=== PATIENT | male | born 1940 | race Caucasian/White ===

== ENCOUNTER 2017-03-17 05:59 | Inpatient (IN) | payer MEDICARE, BC ==
[2017-03-04 13:51] LABS: BASOPHILS 0.3 %; BASOPHILS ABSOLUTE 0.04 10/3/uL (0.0-0.16); EOSINOPHILS 0.7 %; EOSINOPHILS ABSOLUTE 0.08 10/3/uL (0.0-0.53); HEMATOCRIT 44.7 % (40.0-51.0); HEMOGLOBIN 14.5 g/dL (13.6-17.8); IMMATURE GRANULOCYTES 0.7 %; IMMATURE GRANULOCYTES ABSOLUTE 0.08 10/3/uL (0.0-0.11); LYMPHOCYTES 13.5 %; LYMPHOCYTES ABSOLUTE 1.64 10/3/uL (0.67-4.30); MEAN CORPUS HGB CONC 32.4 g/dL (32.0-36.0); MEAN CORPUSCULAR HEMOGLOB 29.2 pg (26.0-34.0); MEAN CORPUSCULAR VOLUME 90.1 fL (80-100); MEAN PLATELET VOLUME 9.5 fL (9.2-13.0); MONOCYTES 8.6 %; MONOCYTES ABSOLUTE 1.05 10/3/uL (0.21-1.20); NEUTROPHILS 76.2 %; NEUTROPHILS ABSOLUTE 9.27 10/3/uL (2.02-8.40); PLATELET COUNT 240 10/3/uL (150-400); RBC DISTRIBUTION WIDTH 13.5 % (12.0-16.0); RED CELL COUNT 4.96 10/6/uL (4.7-6.1); WHITE BLOOD CELLS 12.2 10/3/uL (4.5-10.5)
[2017-03-04 13:52] LABS: MANUAL DIFF NO %
[2017-03-04 13:57] LABS: PARTIAL THROMBO TIME 29.8 SEC (22.5-37.2)
[2017-03-04 13:58] LABS: PROTIME (NOT ORD) 12.9 SEC (12.0-14.5)
[2017-03-04 14:02] LABS: BUN (BLOOD UREA NITROGEN) 26 MG/DL (6-23); CALCIUM, SERUM 9.1 MG/DL (8.5-10.4); CHLORIDE, SERUM 105 MMOL/L (96-112); CO2 (CARBON DIOXIDE) 28 MMOL/L (24-34); CREATININE 1.76 MG/DL (0.70-1.30); GFR AFRICAN AMERICAN 43 ML/MIN (>=60); GFR NON AFRICAN AMERICAN 37 ML/MIN (>=60); GLUCOSE, SERUM 134 MG/DL (60-99); POTASSIUM, SERUM 4.7 MMOL/L (3.5-5.3); SODIUM, SERUM 141 MMOL/L (135-148)
[2017-03-05 14:39] LABS: ASCORBIC ACID (UR NOT ORDER) NEG (NEG); BILIRUBIN, URINE NEGATIVE (NEG); KETONE, URINE NEGATIVE (NEG); LEUKOCYTE ESTERASE(NOT OR NEG (NEG); WBC (NOT ORDERED) (RFLEX) 1 (0-5)
[2017-03-06 08:32] LABS: A/G RATIO 1.2 (0.7-1.9); ALBUMIN 3.7 G/DL (3.5-5.0); ALKALINE PHOSPHATASE 89 U/L (45-117); GLOBULIN 3.2 G/DL (2.5-4.1); SGOT(AST) 13 U/L (5-40); SGPT(ALT) 18 U/L (5-65); TOTAL BILIRUBIN 0.3 MG/DL (0-1.2); TOTAL PROTEIN 6.9 G/DL (6.0-8.5)
--- NOTE | ~2017-03-17 | DS ---
Discharge Summary [facility] [address] [place]. [address] NAME: LORY MONTAGUE : 42 STATUS : DIS IN PAT#: [id number] AGE: 76 ADM/REG DATE : 03/17/17 MR#: [id number] REPORT SERV DATE: 03/31/17 DICTATED BY: DIDIER LEIGH DATE: 03/31/17 REPORT STATUS : Draft TRANSCRIBED BY: VALERY DATE: 03/31/17 Data Collection from hospitalization DISCHARGE DIAGNOSES: 1. Severe bilateral knee degenerative joint disease. 2. Hypertension. 3. Type 2 diabetes. 4. Hearing loss. 5. Degenerative disk disease. 6. Disk herniation. 7. Diverticulosis. 8. Benign prostatic hypertrophy. 9. Anemia. 10.Gastroesophageal reflux disease. 11.Osteoarthritis. 12.Spinal stenosis. 13.Neuropathy. 14.Urinary retention. CONSULTATION: Leatha Nova NP PROCEDURES PERFORMED: Bilateral posterior stabilized total knee replacement, cemented, 03/17/2017. PATHOLOGY: Bone and tissue, right and left knee joint-degenerative osteoarthritis. MEDICATIONS: Colace 100 mg twice a day, Pepcid 20 mg twice a day, ferrous sulfate 300 mg with breakfast and supper, Neurontin 400 mg twice a day, NovoLog injection insulin as instructed, Theragran tablets one tablet with breakfast, Flomax 0.4 mg at 6 p.m. as instructed, Coumadin as instructed, Glucophage 1000 mg twice a day, Glucotrol 5 mg twice a day, Prinivil 10 mg every morning, Maxzide one tablet daily. CONDITION AT DISCHARGE: Stable. DISPOSITION: The patient was discharged to [facility] on an 1800 calorie diabetic diet with activities as instructed. HOSPITAL COURSE: This is a 76-year-old man, who was seen in the clinic with complaints of cuxhi-af-[id number] intermittent bilateral knee pain that had been symptomatic and severe for about one year. The approximate date of onset was 5+ years. The patient said that his pain was not due to an accident or injury. He is status post left knee arthroscopy in 2003. Location of the pain was medial, lateral across the patella and patellar tubercle. The patient has severe bilateral knee degenerative joint disease. Treatment options were discussed and it was elected to proceed with surgical intervention. He was admitted to the hospital at this time for further evaluation and treatment. Upon admission, he was taken to the operating room, where he underwent the above-mentioned procedure. He tolerated this well and there were no complications. Postoperatively, he was Discharge Summary [address] [place]. [address] NAME: LORY MONTAGUE : 41 STATUS : DIS IN PAT#: [id number] AGE: 76 ADM/REG DATE : 03/17/17 MR#: [id number] REPORT SERV DATE: 03/31/17 DICTATED BY: DIDIER LEIGH DATE: 03/31/17 REPORT STATUS : Draft TRANSCRIBED BY: VALERY DATE: 03/31/17 seen by Leatha Nova regarding tachycardia postoperatively. He had a tachycardic rhythm. The patient has type 2 diabetes. He is on glipizide and metformin at home. He said he checked his blood sugars only once a week. He was going to undergo diabetes education. He was placed on an 1800-calorie diabetic diet. He was placed on level 1 sliding scale insulin. He was now on insulin hypoglycemic protocol and metformin was held as well as his Glucotrol presently. Hemoglobin A1c was going to be checked. EKG revealed sinus tachycardia. He did lose blood. He was going to be given a normal saline bolus. We would hold his daily Maxzide and continue his IV fluids. He was going to be given oral Kayexalate as well as calcium gluconate. He does have hyperkalemia. He has a creatinine level of 1.57 with acute renal insufficiency. Lisinopril was held. His daily Neurontin was continued for his neuropathy. Hemoglobin A1c and EKG were going to be checked as well as BMP, PT, CBC, magnesium, and phosphorus. On postop day one, he underwent diabetes education. A straight catheterization had been performed. He said he was having no urge to void. SINDHU inhibitor was on hold. A dose of Levemir was given. Sliding scale insulin was increased to level 2. Weston catheter was going to be placed. Toradol was soft. He did have some urinary retention. Flomax was ordered. Nephrotoxic medications were held. He was evaluated by Physical Therapy. Over the next couple of days, he continued to progress. He was working with Physical Therapy. LEIGH hose remained in place. Bladder training was began. On 03/20/2017, he did have some dizziness and lightheadedness when sitting up. Creatinine level was 1.20. He was transfused one unit of packed red blood cells. Flomax was continued. Discharge instructions were given. Due to his improved and stable condition, he was discharged to [facility] with the above-stated instructions. Information collected by: Mary Ann Rand I submit the above information as my discharge summary. ADRIANNA/VALERY Shelia Leigh M.D. / [id number] CC: Stoney De Souza M.D. [facility]
--- NOTE | ~2017-03-17 | OP ---
Record Of Operation [facility] [address] [place]. [address] NAME: LORY MONTAGUE : 42 STATUS : ADM IN PAT#: [id number] AGE: 76 ADM/REG DATE : 03/17/17 MR#: [id number] REPORT SERV DATE: 03/17/17 DICTATED BY: DIDIER LEIGH DATE: 03/17/17 REPORT STATUS : Draft TRANSCRIBED BY: MODL DATE: 03/17/17 DATE OF PROCEDURE: 03/17/2017 PREOPERATIVE DIAGNOSIS: Severe bilateral knee degenerative joint disease. POSTOPERATIVE DIAGNOSIS: Severe bilateral knee degenerative joint disease. OPERATION: Bilateral posterior stabilized total knee replacement, cemented. SIDE: Right and left. SIZE: See chart. ANESTHESIA: See chart. ESTIMATED BLOOD LOSS: About 10 mL. TOURNIQUET TIME: Approximately 1 hour and 10 minutes. COMPLICATIONS: None. SPECIMENS: Articular surfaces. PROCEDURE IN DETAIL: The patient was appropriately identified and marked. The operative side agreed with the consent form and it was checked by all members of the surgical team. The patient was taken to the operating room and anesthesia was induced per the anesthesiologist. The patient was carefully transferred to the operating table without incident. The patient received appropriate prophylactic antibiotics and a Weston catheter was placed in the standard sterile technique. The patient was then carefully positioned, padded, prepped and draped in the normal sterile fashion. The operative leg had been appropriately identified and checked by all members of the operating team against the consent form and found to be the correct limb. The patient's lower extremity was then exsanguinated with an Deni wrap and a tourniquet was inflated to 350 mmHg. Sharp dissection was carried out through a straight midline longitudinal incision and electrocautery through the fat. Sharp quad splitting approach was carried out between about the medial 10 percent of the tendon and the lateral 90 percent of the tendon and down around the medial aspect of the patella and then 1 cm medial to the tibial tubercle. The patella was carefully everted and the posterior fat pad was excised and gentle MCL elevation was carried out off the proximal medial tibia subperiosteally. IM guide was placed in the distal femur after using the appropriate drill. The distal femoral cutting guide was held with 2 pins and the distal cut made. Meniscal fragments and the ACL and the PCL were excised with electrocautery, carefully staying anterior to the posterior fat pad. The proximal tibial alignment guide was set appropriately and the proximal tibial cut made. Spacer block verified full extension with excellent mediolateral balance. Sizing guide was used to place 2 drill holes in the distal femur and the four-in-one cutting block was then placed, impacted and checked Record Of Operation [facility] [address] [place]. [address] NAME: LORY MONTAGUE : 41 STATUS : ADM IN PAT#: [id number] AGE: 76 ADM/REG DATE : 03/17/17 MR#: [id number] REPORT SERV DATE: 03/17/17 DICTATED BY: DIDIER LEIGH DATE: 03/17/17 REPORT STATUS : Draft TRANSCRIBED BY: MODL DATE: 03/17/17 to be sure it would not notch with an tamra wing and it was held with 2 pins. The anterior cut, posterior cut, anterior chamfer and posterior chamfer cuts were made. The pins were removed and the block was removed. A posterior release was carried out with a curved 3/4 inch osteotome staying right on the bone posteriorly. The box-cut guide was then placed, impacted and held with 2 pins and a reciprocating saw was used to cut out the box. With the trial components in place, there was excellent medial/lateral balance. The patella was then measured with a caliper, cut first with an oscillating saw and then reamed with a patella reamer. With the trial patella in place, there was excellent patellar tracking. Rotation was marked on the tibia and the tibia prepared with a drill and stamp chisel. All surfaces were then copiously irrigated with pulsatile lavage, carefully dried and then vacuum-mixed cement was pressurized with a cement gun in a doughy phase. The tibial component was placed, impacted and excess cement was removed. The cement was then pressurized in the femur and placed on the posterior runners of the femoral component, which was placed, impacted and excess cement removed and the knee was brought out into extension on a trial spacer. The cement was then pressurized in the patella. Patellar component was then placed, clamped and excess cement was removed. Once all cement was hardened, the knee was taken through range of motion. Further extruded cement was removed with a small osteotome. Then based on the trial inserts, we decided on the actual insert, which was placed in the standard fashion and held with a locking mechanism. The knee was then copiously irrigated and then closed in a layered fashion over a medium Hemovac drain superolaterally with interrupted #1 in the deep fascia, 2-0 subcutaneous and anju in the skin. The wounds were dressed sterilely and the tourniquet was deflated. After completion of the first knee and discussion with the anesthesiologist, all parameters were acceptable and we decided to proceed with the second knee. Same procedure as that dictated above was carried out on the contralateral knee. The contralateral leg was again appropriately identified and checked by all members of the operating team against the consent form and found to be the correct limb. The patient's lower extremity was then exsanguinated with an Deni wrap and a tourniquet was inflated to 350 mmHg. Sharp dissection was carried out through a straight midline longitudinal incision and electrocautery through the fat. Sharp quad splitting approach was carried out between about the medial 10 percent of the tendon and the lateral 90 percent of the tendon and down around the medial aspect of the patella and then 1 cm medial to the tibial tubercle. The patella was carefully everted and the posterior fat pad was excised and gentle MCL elevation was carried out off the proximal medial tibia subperiosteally. IM guide was placed in the distal femur after using the appropriate drill. The distal femoral cutting guide was held with 2 pins and the distal cut made. Meniscal fragments and the ACL and the PCL were excised with electrocautery, carefully staying anterior to the posterior fat pad. The proximal tibial alignment guide was set appropriately and the proximal tibial cut made. Spacer block verified full extension with excellent mediolateral balance. Sizing guide was used to place 2 drill holes in the distal femur and the four-in-one cutting block was then placed, impacted and checked to be sure it would not notch with an tamra wing and it was held with 2 pins. The anterior cut, posterior cut, anterior chamfer and posterior chamfer cuts were made. The pins were removed and the block was removed. A posterior release was carried out with a curved 3/4 inch osteotome staying right on the bone posteriorly. The box cut guide was then placed, impacted and held with 2 pins and a reciprocating saw was used to Record Of Operation [address] [place]. [address] NAME: LORY MONTAGUE : 42 STATUS : ADM IN [facility]#: [id number] AGE: 76 ADM/REG DATE : 03/17/17 MR#: [id number] REPORT SERV DATE: 03/17/17 DICTATED BY: DIDIER LEIGH DATE: 03/17/17 REPORT STATUS : Draft TRANSCRIBED BY: VALERY DATE: 03/17/17 cut out the box. With the trial components in place, there was excellent medial/lateral balance. The patella was then measured with a caliper, cut first with an oscillating saw and then reamed with a patella reamer. With the trial patella in place, there was excellent patellar tracking. Rotation was marked on the tibia and the tibia prepared with a drill and stamp chisel. All surfaces were then copiously irrigated with pulsatile lavage, carefully dried and then vacuum-mixed cement was pressurized with a cement gun in a doughy phase. The tibial component was placed, impacted and excess cement was removed. The cement was then pressurized in the femur and placed on the posterior runners of the femoral component, which was placed, impacted and excess cement removed and the knee was brought out into extension on a trial spacer. The cement was then pressurized in the patella. Patellar component was then placed, clamped and excess cement was removed. Once all cement was hardened, the knee was taken through range of motion. Further extruded cement was removed with a small osteotome. Then based on the trial inserts, we decided on the actual insert, which was placed in the standard fashion and held with a locking mechanism. The knee was then copiously irrigated and then closed in a layered fashion over a medium Hemovac drain superolaterally with interrupted #1 in the deep fascia, 2-0 subcutaneous and anju in the skin. The wounds were dressed sterilely and the tourniquet was deflated. The patient was then awakened and taken to the postanesthesia care unit without incident. All counts were correct at the end of the case. YE/VALERY Shelia Leigh M.D. / [id number] CC: Shelia eLigh M.D.
--- NOTE | ~2017-03-17 | CN ---
Consultation Report [address] [address] NAME: LORY MONTAGUE : 42 STATUS : ADM IN PAT#: [id number] AGE: 76 ADM/REG DATE : 03/17/17 MR#: [id number] REPORT SERV DATE: 03/18/17 DICTATED BY: LEATHA REYNOLDS DATE: 03/18/17 REPORT STATUS : Draft TRANSCRIBED BY: MODL DATE: 03/18/17 CONSULTATION DATE OF CONSULTATION: 03/17/2017 REASON FOR CONSULTATION: The Hospitalist Group was consulted for tachycardia postoperatively. IDENTIFYING DATA: PCP: The patient states he sees Dr. Vázquez, believes his name is Dr. Tom Vázquez. Orthopedist: In the past, Dr. Salas Campo as well as Dr. Kai Parrish. Urologist: Dr. Randy Larose Jr. Crm Analyst: Dr. Chandra. Surgeon: Dr. Khris Lubin. Senior Ui Ux Designer: Dr. Oc Tejeda. HISTORY OF PRESENT ILLNESS: This is a pleasant 76-year-old male with history of hypertension, degenerative disk disease, diverticulosis, BPH, diabetes type 2 diagnosed in 1994, GERD, spinal stenosis, neuropathy. He is being seen by Dr. Randy Campo on this admission for which his admission diagnosis was severe bilateral knee degenerative joint disease. He is status post surgery on 03/17/2017, for bilateral total knee arthroplasty. We have been consulted in the Hospitalist Group because of the patient having a tachycardic rhythm. The patient's history was obtained through interview with the patient, coupled with review of [employer] and [employer]. PAST MEDICAL HISTORY: 1. Seasonal allergies. 2. Hearing loss. 3. Bilateral hearing aids. 4. Wears glasses. 5. Hypertension. 6. Degenerative disk disease. 7. Disk herniation. 8. Diverticulosis. 9. BPH. 10.Diabetes, type 2, diagnosed in 1994. 11.Anemia. 12.GERD. 13.Osteoarthritis. 14.Spinal stenosis. 15.Neuropathy. 16.Urinary retention. Consultation Report [address] [address] NAME: LORY MONTAGUE : 41 STATUS : ADM IN PAT#: [id number] AGE: 76 ADM/REG DATE : 03/17/17 MR#: [id number] REPORT SERV DATE: 03/18/17 DICTATED BY: GAILLEATHA SERNAN DATE: 03/18/17 REPORT STATUS : Draft TRANSCRIBED BY: VALERY DATE: 03/18/17 HOME MEDICATIONS: 1. Gabapentin 400 mg p.o. twice a day. 2. Glucotrol 5 mg p.o. twice a day. 3. Lisinopril 10 mg p.o. every morning. 4. Metformin 1000 mg p.o. twice a day. 5. Ultram extended release 300 mg p.o. daily. 6. Maxzide-25 one tablet p.o. daily. SOCIAL HISTORY: The patient is 55 years, has three grown daughters, four grandchildren, and four great grandchildren. He was a smoker, but quit 25 years ago. He lives in a single-level home. He has to utilize a cane to ambulate for the last 18 months due to his bilateral knee problem. No illicit drug use. He does drink alcohol occasionally, one drink at night two to three times per week. FAMILY HISTORY: Mother had coronary artery disease, PA, cancer and was at 62 years old. The patient is an only child. He has no known history of his father's medical history. SURGICAL HISTORY: 1. Appendectomy as a child. 2. Cholecystectomy, laparoscopic in 2008. 3. Inguinal hernia surgery. 4. Right knee scope in 2003. 5. Spinal fusion 04/2014. 6. Repair of bile duct blockage in 2012. 7. LESI of L5-S1 in 2011. REVIEW OF SYSTEMS: Negative other than what is in HPI. The patient has no shortness of breath. No nausea or vomiting. No abdominal pain. No chest pain. No fever. Displays no confusion or agitation. He is on the defensive monitoring and displays a sinus tachycardia as well as a stat EKG noting a sinus tachycardia with nonspecific T-wave abnormality. His rate was at 121. Presently, his heart rate is at 114. PHYSICAL EXAMINATION: VITAL SIGNS: From today, blood pressure 138/69, respiratory rate 18, heart rate 130, temperature 99.1, O2 saturation 96% on room air. GENERAL: This is a very pleasant 76-year-old male, resting in bed. In no acute distress. NEURO: His head is atraumatic, normocephalic. He is alert and oriented x3. His cranial nerves are intact. His mood is pleasant and appropriate. NECK: Supple. Trachea is midline. No JVD noted. No obvious thyromegaly or lymphadenopathy. EENT: His sclerae are nonicteric. Pupils are equal and reactive to light. His nares are Consultation Report [facility] [address] [place]. [address] NAME: LORY MONTAGUE : 42 STATUS : ADM IN PAT#: [id number] AGE: 76 ADM/REG DATE : 03/17/17 MR#: [id number] REPORT SERV DATE: 03/18/17 DICTATED BY: LEATHA REYNOLDS DATE: 03/18/17 REPORT STATUS : Draft TRANSCRIBED BY: MODL DATE: 03/18/17 patent. Mucous membranes moist. His tongue is midline without deviation. Soft palate rises equally on phonation. CHEST: No pain with palpation. LUNGS: Clear to auscultation bilaterally. He has normal respiratory effort. No increased work of breathing with conversation. He is encouraged to use his incentive spirometer. CARDIOVASCULAR: S1, S2. No obvious murmurs, rubs, or gallops. He is displaying a regular rhythm of sinus tachycardia with a rate presently at 114 on defensive monitoring. ABDOMEN: Obese, soft, nontender. Bowel sounds are active. No palpable organomegaly. Last bowel movement was 03/17/2017. EXTREMITIES: Pulses present. No calf tenderness. No edema. He has bilateral SCDs and TEDs intact. SKIN: Warm and dry. No unusual rashes or lesions. Normal color and turgor for age. PSYCH: The patient is pleasant and cooperative. Appropriate mood and affect. SURGICAL WOUND SITE: The patient does have two Chaplin drain in place at operative knee sites bilaterally with sanguinous drainage noted. LABORATORY DATA: From 03/17/2017 at 2340 hours, sodium 137, potassium 5.8, chloride 106, BUN 29, creatinine 1.57, GFR 49, glucose 277, calcium 8.0, magnesium 1.4, phosphorus 3.4. White blood cells 17.7, hemoglobin 10.3, hematocrit 32.0, platelets 266. INR 1.0. He had an EKG on 03/17/2017, which displayed a sinus tachycardia with nonspecific T-wave abnormality at a rate of 121. ASSESSMENT AND PLAN: 1. Diabetes, type 2. The patient is on glipizide, metformin at home. He says he checks his blood sugars only one time a week. He states he was not eating tonight, he could not eat any of the hospital food. We will have a community educator to see him. He is on a diabetic 1800 calorie diet. We will change his insulin or his diabetes coverage to fingerstick blood sugars a.c. and at bedtime. We will put him on a sliding scale level 1. Since he is not on insulin with hypoglycemic protocol, we will hold his metformin and his Glucotrol presently, and we will check hemoglobin A1c on his labs. 2. Tachycardia for which we were consulted. EKG shows a sinus tachycardia. The patient did lose blood. He had two Cyril full. We will give him a normal saline 500 mL bolus. We will hold his daily Maxzide and continue his IV fluids at 100 an hour. 3. Hyperkalemia. We have noted on the labs that we obtained his potassium and was 5.8. He will be continued on telemetry. We will give him Kayexalate p.o. as well as calcium gluconate and treat his blood sugar as needed. We will also continue his IV fluids at 100 an hour and recheck his potassium at 6:00 a.m. 4. Acute renal insufficiency. Noted on labs, creatinine was 1.57. We will hold his lisinopril also because of renal function as well as the high potassium level that is accompanied. 5. Neuropathy. We will continue his daily Neurontin. 6. Labs, BMP, PT, CBC, magnesium, phosphorus, we will get a.m. hemoglobin A1c, EKG. The patient will need to be hydrated which is part of his tachycardia as well as the blood loss during surgery and we will need to recheck his BMP later on this morning. The Hospitalist Group would like to thank you for this consultation. Please let us know if Consultation Report [place] [address] [place]. [address] NAME: LORY MONTAGUE : 42 STATUS : ADM IN [facility]#: [id number] AGE: 76 ADM/REG DATE : 03/17/17 MR#: [id number] REPORT SERV DATE: 03/18/17 DICTATED BY: LEATHA REYNOLDS DATE: 03/18/17 REPORT STATUS : Draft TRANSCRIBED BY: VALERY DATE: 03/18/17 we could be of further assistance. /VALERY Leatha Reynolds NP / [id number] CC: Stoney De Souza M.D.
[~2017-03-17 05:59] MED LIST: ASA5GR PO; BALACET 325 PO; CINNAMON PO; DYAZIDE1 CAP PO; GARLIC PO; GARLIFE PO; GLUCOPHAGE1000 MG PO; GLUCOTROL5 PO; LEVAQUIN750 MG PO; LORTAB10 PO; MAX25 PO; METHOC750B; MOBIC15 MG PO; MORPHINE; MSCONT15 PO; MULTIPLE VIT PO; MULTIVITAMI1 PO; NEUR400 PO; NEUR600 PO; NORCO1 TAB PO; ONGLYZA5 MG PO; OXYCOD PO; PRILO PO; PRIN10 PO; RED YEAS1 OR; RED YEAS1 PO; SENTAB PO; TRADJENTA5 MG PO; ULTRAM ER300 MG PO; VITAMIN C100 MG PO; VITAMIN C1000 MG PO; VITC500 PO; ZOFRAN ODT4 MG PO
[2017-03-17 23:56] LABS: MEAN CORPUS HGB CONC 32.2 g/dL (32.0-36.0); MEAN CORPUSCULAR HEMOGLOB 29.3 pg (26.0-34.0); MEAN CORPUSCULAR VOLUME 90.9 fL (80-100); MEAN PLATELET VOLUME 9.5 fL (9.2-13.0); PLATELET COUNT 266 10/3/uL (150-400); RBC DISTRIBUTION WIDTH 13.6 % (12.0-16.0)
[2017-03-17 23:58] LABS: HEMOGLOBIN 10.3 g/dL (13.6-17.8); MANUAL DIFF YES %; RED CELL COUNT 3.52 10/6/uL (4.7-6.1); WHITE BLOOD CELLS 17.7 10/3/uL (4.5-10.5)
[2017-03-18 00:04] LABS: BUN (BLOOD UREA NITROGEN) 29 MG/DL (6-23); CHLORIDE, SERUM 106 MMOL/L (96-112); CREATININE 1.57 MG/DL (0.70-1.30); GFR AFRICAN AMERICAN 49 ML/MIN (>=60); GFR NON AFRICAN AMERICAN 42 ML/MIN (>=60); PHOSPHORUS, SERUM 3.4 MG/DL (2.5-4.5); SODIUM, SERUM 137 MMOL/L (135-148)
[2017-03-18 00:18] LABS: BAND NEUTROPHILS 5 %; LYMPHOCYTES 3 %; LYMPHOCYTES ABSOLUTE (CALC) 0.53 10/3/uL (0.67-4.30); MONOCYTES 7 %; MONOCYTES ABSOLUTE (CALC) 1.24 10/3/uL (0.21-1.20); NEUTROPHILS ABSOLUTE (CALC) 15.93 10/3/uL (2.02-8.40); PLATELET ESTIMATE ADQ (ADEQUATE); RBC MORPHOLOGY NORM (NORMAL); SEGMENTED NEUTROPHIL (0) 85 %; TOTAL NUCLEATED CELLS 100
[2017-03-18 00:19] LABS: CO2 (CARBON DIOXIDE) 23 MMOL/L (24-34); GLUCOSE, SERUM 277 MG/DL (60-99); POTASSIUM, SERUM 5.8 MMOL/L (3.5-5.3)
[2017-03-18 05:34] LABS: HEMATOCRIT 28.1 % (40.0-51.0); HEMOGLOBIN 8.9 g/dL (13.6-17.8)
[2017-03-18 05:36] LABS: INTERNATIONAL NORMAL RATI 1.2 UNITS (-)
[2017-03-18 05:45] LABS: BUN (BLOOD UREA NITROGEN) 29 MG/DL (6-23); CALCIUM, SERUM 8.1 MG/DL (8.5-10.4); CHLORIDE, SERUM 107 MMOL/L (96-112); CO2 (CARBON DIOXIDE) 23 MMOL/L (24-34); CREATININE 1.57 MG/DL (0.70-1.30); GFR AFRICAN AMERICAN 49 ML/MIN (>=60); GFR NON AFRICAN AMERICAN 42 ML/MIN (>=60); GLUCOSE, SERUM 240 MG/DL (60-99); POTASSIUM, SERUM 5.3 MMOL/L (3.5-5.3); SODIUM, SERUM 139 MMOL/L (135-148)
[2017-03-18 05:52] LABS: PROTIME (NOT ORD) 15.4 SEC (12.0-14.5)
[2017-03-18 10:38] LABS: BUN (BLOOD UREA NITROGEN) 30 MG/DL (6-23); CALCIUM, SERUM 7.8 MG/DL (8.5-10.4); CHLORIDE, SERUM 105 MMOL/L (96-112); CO2 (CARBON DIOXIDE) 24 MMOL/L (24-34); CREATININE 1.64 MG/DL (0.70-1.30); GFR AFRICAN AMERICAN 47 ML/MIN (>=60); GFR NON AFRICAN AMERICAN 40 ML/MIN (>=60); GLUCOSE, SERUM 285 MG/DL (60-99); POTASSIUM, SERUM 4.8 MMOL/L (3.5-5.3); SODIUM, SERUM 138 MMOL/L (135-148)
[2017-03-19 07:25] LABS: BASOPHILS 0.2 %; BASOPHILS ABSOLUTE 0.02 10/3/uL (0.0-0.16); EOSINOPHILS 0.1 %; EOSINOPHILS ABSOLUTE 0.01 10/3/uL (0.0-0.53); HEMATOCRIT 25.5 % (40.0-51.0); HEMOGLOBIN 8.4 g/dL (13.6-17.8); IMMATURE GRANULOCYTES 0.8 %; IMMATURE GRANULOCYTES ABSOLUTE 0.11 10/3/uL (0.0-0.11); LYMPHOCYTES 11.2 %; LYMPHOCYTES ABSOLUTE 1.47 10/3/uL (0.67-4.30); MANUAL DIFF NO %; MEAN CORPUS HGB CONC 32.9 g/dL (32.0-36.0); MEAN CORPUSCULAR HEMOGLOB 29.6 pg (26.0-34.0); MEAN CORPUSCULAR VOLUME 89.8 fL (80-100); MEAN PLATELET VOLUME 9.6 fL (9.2-13.0); MONOCYTES ABSOLUTE 1.84 10/3/uL (0.21-1.20); NEUTROPHILS 73.7 %; NEUTROPHILS ABSOLUTE 9.72 10/3/uL (2.02-8.40); PLATELET COUNT 239 10/3/uL (150-400); RBC DISTRIBUTION WIDTH 13.9 % (12.0-16.0); RED CELL COUNT 2.84 10/6/uL (4.7-6.1); WHITE BLOOD CELLS 13.2 10/3/uL (4.5-10.5)
[2017-03-19 07:32] LABS: INTERNATIONAL NORMAL RATI 1.8 UNITS (-)
[2017-03-19 07:37] LABS: CALCIUM, SERUM 7.8 MG/DL (8.5-10.4); CHLORIDE, SERUM 103 MMOL/L (96-112); CO2 (CARBON DIOXIDE) 23 MMOL/L (24-34); CREATININE 1.45 MG/DL (0.70-1.30); GFR AFRICAN AMERICAN 54 ML/MIN (>=60); GFR NON AFRICAN AMERICAN 47 ML/MIN (>=60); POTASSIUM, SERUM 4.2 MMOL/L (3.5-5.3); SODIUM, SERUM 135 MMOL/L (135-148)
[2017-03-19 07:38] LABS: ALBUMIN 2.8 G/DL (3.5-5.0); BUN (BLOOD UREA NITROGEN) 25 MG/DL (6-23); GLUCOSE, SERUM 225 MG/DL (60-99); PHOSPHORUS, SERUM 2.3 MG/DL (2.5-4.5)
[2017-03-20 07:34] LABS: BASOPHILS 0.2 %; BASOPHILS ABSOLUTE 0.02 10/3/uL (0.0-0.16); EOSINOPHILS 1.2 %; EOSINOPHILS ABSOLUTE 0.11 10/3/uL (0.0-0.53); HEMATOCRIT 22.6 % (40.0-51.0); HEMOGLOBIN 7.3 g/dL (13.6-17.8); IMMATURE GRANULOCYTES 0.8 %; IMMATURE GRANULOCYTES ABSOLUTE 0.08 10/3/uL (0.0-0.11); LYMPHOCYTES ABSOLUTE 1.34 10/3/uL (0.67-4.30); MANUAL DIFF NO %; MEAN CORPUS HGB CONC 32.3 g/dL (32.0-36.0); MEAN CORPUSCULAR HEMOGLOB 28.7 pg (26.0-34.0); MEAN PLATELET VOLUME 9.1 fL (9.2-13.0); MONOCYTES 13.3 %; MONOCYTES ABSOLUTE 1.27 10/3/uL (0.21-1.20); NEUTROPHILS 70.5 %; NEUTROPHILS ABSOLUTE 6.74 10/3/uL (2.02-8.40); PLATELET COUNT 238 10/3/uL (150-400); RBC DISTRIBUTION WIDTH 13.8 % (12.0-16.0); RED CELL COUNT 2.54 10/6/uL (4.7-6.1); WHITE BLOOD CELLS 9.6 10/3/uL (4.5-10.5)
[2017-03-20 07:36] LABS: INTERNATIONAL NORMAL RATI 1.8 UNITS (-); PROTIME (NOT ORD) 20.8 SEC (12.0-14.5)
[2017-03-20 07:37] LABS: BUN (BLOOD UREA NITROGEN) 22 MG/DL (6-23); CALCIUM, SERUM 8.1 MG/DL (8.5-10.4); CHLORIDE, SERUM 107 MMOL/L (96-112); CO2 (CARBON DIOXIDE) 26 MMOL/L (24-34); GFR AFRICAN AMERICAN 68 ML/MIN (>=60); GFR NON AFRICAN AMERICAN 59 ML/MIN (>=60); POTASSIUM, SERUM 3.7 MMOL/L (3.5-5.3); SODIUM, SERUM 140 MMOL/L (135-148)
[2017-03-20 07:38] LABS: GLUCOSE, SERUM 155 MG/DL (60-99)
== END 2017-03-20 20:10 | DRG 462 ==
LOC: SDC/OF 05:59 → PACU 10:14 → 3SO 11:46
PROVIDERS: Nurse Practitioner; Nurse Practitioner Family; Specialist
PROC: 0SRC0J9 Replacement of Right Knee Joint with Synthetic Substitute, Cemented, Open Approach (ICD-10-PCS; 2017-03-17)
PROC: 0SRD0J9 Replacement of Left Knee Joint with Synthetic Substitute, Cemented, Open Approach (ICD-10-PCS; principal; 2017-03-17 07:45)
DX: M17.0 Bilateral primary osteoarthritis of knee (principal); N17.9 Acute kidney failure, unspecified; E11.42 Type 2 diabetes mellitus with diabetic polyneuropathy; E11.65 Type 2 diabetes mellitus with hyperglycemia; E87.5 Hyperkalemia; D62 Acute posthemorrhagic anemia; I97.89 Other postprocedural complications and disorders of the circulatory system, not elsewhere classified; R00.0 Tachycardia, unspecified; Z79.899 Other long term (current) drug therapy; Z79.84 Long term (current) use of oral hypoglycemic drugs; I10 Essential (primary) hypertension; Z90.49 Acquired absence of other specified parts of digestive tract; Z98.890 Other specified postprocedural states; Z82.49 Family history of ischemic heart disease and other diseases of the circulatory system; Z87.891 Personal history of nicotine dependence; N40.0 Benign prostatic hyperplasia without lower urinary tract symptoms; Z68.31 Body mass index [BMI] 31.0-31.9, adult; Z81.2 Family history of tobacco abuse and dependence; Z80.8 Family history of malignant neoplasm of other organs or systems
CPT/HCPCS: 36415; 71020; 80048; 80053; 80069; 81001; 82962; 83036; 83735; 84100; 85014; 85018; 85025; 85610; 85730; 86850; 86900; 86901; 86920; 87641; 88305; 88311; 93005; 97110-GP; 97116-GP; 97161-GP; 97165-GO; 97530-GP; 97535-GO; A9270-GY; C1776; G8978-CK-GP; G8979-CI-GP; J0610; J0690; J1885; J2250; J2270; J2274; J2370; J2405; J2710; J2795; J3010; J3475; P9016